=== PATIENT | male | born 1950 | race Caucasian/White ===

== ENCOUNTER 2018-08-29 21:10 | Emergency (ER) | payer MEDICARE ==
[~2018-08-29] VITALS: Ht 180.3 cm; Wt 88.2 kg
[2018-08-29] MEDS ORDERED: WARF1TAB74 PO ×2 (21:41)
[2018-08-29] MEDS ORDERED: NAPR-685 PO (21:41)
[2018-08-29] MEDS ORDERED: GLIP5TAB10 PO (21:41)
[2018-08-29] MEDS ORDERED: METF500T17 PO (21:41)
[2018-08-29] MEDS ORDERED: SODIUM CHLORIDE FLUSH 10ML SYR IVF ONE (22:00)
[2018-08-29] MEDS ORDERED: SODIUM CHLORIDE 0.9% 1,000ML IVBOLUS ONE (22:00)
[2018-08-29] MEDS ORDERED: METOCLOPRAMIDE 5 MG/ML, 2ML IVPush ONE (22:00)
[2018-08-29 22:59] LABS: BASOPHILS # (AUTO) 0.02 x10^3/uL (0-0.1); BASOPHILS % (AUTO) 0 % (0-1); EOSINOPHILS # (AUTO) 0.01 x10^3/uL (0-0.4); EOSINOPHILS % (AUTO) 0 % (1-7); LYMPHOCYTES # (AUTO) 0.58 x10^3/uL (1-3.4); LYMPHOCYTES % (AUTO) 5 % (22-44); MD NO; MEAN CORPUSCULAR HEMOGLOBIN 30.3 pg (27.5-34.5); MEAN CORPUSCULAR HGB CONC 33.9 g/dL (33.2-36.2); MEAN CORPUSCULAR VOLUME 89.4 fL (81-97); MONOCYTES # (AUTO) 0.51 x10^3/uL (0.2-0.8); MONOCYTES % (AUTO) 5 % (2-9); NEUTROPHILS % (AUTO) 90 % (42-75); PLATELET COUNT 169 x10^3/uL (130-400); RED BLOOD COUNT 4.82 x10^6/uL (4.38-5.82); RED CELL DISTRIBUTION WIDTH 13.5 % (9.4-14.8)
[2018-08-29 23:05] LABS: ALANINE AMINOTRANSFERASE 35 U/L (12-78); ANION GAP 14 mmol/L (5-15); CALCIUM 8.8 mg/dL (8.5-10.1); CHLORIDE 99 mmol/L (98-107); CREATININE 1.73 mg/dL (0.7-1.3)
[2018-08-29 23:07] LABS: ALKALINE PHOSPHATASE 84 U/L (45-117); BILIRUBIN,TOTAL 0.5 mg/dL (0.2-1.0); TOTAL PROTEIN 7.8 g/dL (6.4-8.2)
[2018-08-29] MEDS ORDERED: METOCLOPRAMIDE 5 MG/ML, 2ML ONE (23:13)
[2018-08-29 23:37] LABS: MICROSCOPIC AUTO
[2018-08-29 23:42] VITALS: BP 170/92
[2018-08-29 23:43] LABS: CULTURE INDICATED? NO
== END 2018-08-30 00:41 | disposition home or self-care (01) ==
LOC: ED 23:59
DX: R11.2 Nausea with vomiting, unspecified (principal); R10.84 Generalized abdominal pain; E11.9 Type 2 diabetes mellitus without complications; Z86.718 Personal history of other venous thrombosis and embolism; Z90.89 Acquired absence of other organs
CPT/HCPCS: 36415; 74022; 80053; 81001; 83690; 85025; 96361; 96374; 99285; J2765; J7030